=== PATIENT | male | born 1955 | race Two or more races ===

== ENCOUNTER 2022-09-25 00:36 | Inpatient (IN) | payer OTHER ==
[~2022-09-25] VITALS: Ht 167.6 cm; Wt 61.2 kg
[2022-09-25] VITALS (11 sets, daily range): BP systolic 142–158; BP diastolic 71–89
--- NOTE | 2022-09-25 00:40 | NUR ---
[id number], from [facility], c/o chest pain radiating to upper back since 9am 01/06 ps. Vitals checked. Attached to the monitor.
--- NOTE | 2022-09-25 00:55 | NUR ---
Dr. Whitman at bedside.
--- NOTE | 2022-09-25 01:00 | NUR ---
EKG done at bedside by EMT
--- NOTE | 2022-09-25 01:01 | NUR ---
INVERFORM MACHINE OPERATOR AT PT'S BEDSIDE
--- NOTE | 2022-09-25 01:05 | NUR ---
Covid Swab done and sent to lab.
--- NOTE | 2022-09-25 01:05 | NUR ---
Blood drawn for CBC and blood culture and sent to lab.
[2022-09-25 01:39] LABS: BASOPHILS % (AUTO) 0.3 % (0.0-2.0); EOSINOPHILS % (AUTO) 5.8 % (0.0-6.0); LYMPHOCYTES # (AUTO) 0.7 K/uL (0.8-4.8); LYMPHOCYTES % (AUTO) 16.9 % (20.0-44.0); MEAN CORPUSCULAR HGB CONC 34 g/dl (31.0-36.0); MEAN CORPUSCULAR VOLUME 80 fL (80-96); MONOCYTES # (AUTO) 0.4 K/uL (0.1-1.30); MONOCYTES % (AUTO) 8.4 % (2.0-12.0); NEUTROPHILS % (AUTO) 68.6 % (43.0-81.0); PLATELET COUNT (AUTO) 125 K/uL (150-450); RED BLOOD CELL COUNT(AUTO) 2.36 MIL/uL (4.5-6.0); WHITE BLOOD COUNT (AUTO) 4.3 K/uL (4.3-11.0)
[2022-09-25 01:43] LABS: HEMATOCRIT 19 % (39-51); HEMOGLOBIN 6.4 g/dL (13.5-17.5)
[2022-09-25 01:48] LABS: CALCIUM, SERUM 8.2 mg/dL (8.5-10.1); CARBON DIOXIDE 23 mmol/L (21-32); CHLORIDE 104 mmol/L (98-107); CREATININE 2.2 mg/dL (0.6-1.3); GLUCOSE 150 mg/dL (74-106); POTASSIUM 3.6 mmol/L (3.5-5.1); SODIUM SERUM 135 mmol/L (136-145); UREA NITROGEN, BLOOD 46 mg/dL (7-18)
[2022-09-25 02:00] LABS: ALANINE AMINOTRANSFERASE 21 U/L (12-78); ALBUMIN 2.7 g/dL (3.4-5.0); ALKALINE PHOSPHATASE 295 U/L (46-116); ASPARTATE AMINOTRANSFERASE 20 U/L (15-37); BILIRUBIN,DIRECT 0.2 mg/dL (0.0-0.2); BILIRUBIN,TOTAL 0.4 mg/dL (0.2-1.0); TOTAL PROTEIN, SERUM 7.3 g/dL (6.4-8.2)
[2022-09-25] MEDS ORDERED: FUROSEMIDE 40 MG/4 ML VIAL IV ONE (02:00)
--- NOTE | 2022-09-25 02:16 | NUR ---
EPIC PANEL PAGED
[2022-09-25] MEDS ORDERED: NITROGLYCERIN 0.4 MG/TAB BOTTLE SL PRN (02:30)
--- NOTE | 2022-09-25 02:43 | NUR ---
Pt signed the consent form for Blood transfusion.
--- NOTE | 2022-09-25 03:19 | NUR ---
STORY EDITOR AT PT'S BEDSIDE
[2022-09-25 03:40] LABS: LYMPHOCYTES % (MANUAL) 15 % (16-48); NEUTROPHILS % (MANUAL) 71 (42-76)
[2022-09-25 03:41] LABS: BASOPHILS % (MANUAL) 0 % (0.0-2.0); EOSINOPHILS % (MANUAL) 5 % (0-4); MONOCYTES % (MANUAL) 9 % (0-11.0)
[2022-09-25] MEDS ORDERED: MORPHINE SULFATE INJ 2 MG/ML DISP.SYRIN IV PRN (05:00)
--- NOTE | 2022-09-25 05:23 | NUR ---
BLOOD VERIFIED BY: SNEHA DEL ROSARIO. BLOOD TRANSFUSION STARTED AT 05:23. VITAL SIGNS: TEMP: 97.5, PULSE: 71, RESP: 17, BP: 149/81.
[2022-09-25 05:32] LABS: BASOPHILS % (AUTO) 0.3 % (0.0-2.0); HEMATOCRIT 21 % (39-51); LYMPHOCYTES # (AUTO) 0.8 K/uL (0.8-4.8); LYMPHOCYTES % (AUTO) 19.2 % (20.0-44.0); MEAN CORPUSCULAR HGB CONC 33 g/dl (31.0-36.0); MEAN CORPUSCULAR VOLUME 81 fL (80-96); MONOCYTES # (AUTO) 0.3 K/uL (0.1-1.30); MONOCYTES % (AUTO) 8.4 % (2.0-12.0); NEUTROPHILS # (AUTO) 2.6 K/uL (1.8-8.9); NEUTROPHILS % (AUTO) 65.1 % (43.0-81.0); PLATELET COUNT (AUTO) 137 K/uL (150-450); RED BLOOD CELL COUNT(AUTO) 2.59 MIL/uL (4.5-6.0)
--- NOTE | 2022-09-25 05:46 | NUR ---
URINE OUTPUT: 760ML.
[2022-09-25 05:51] LABS: HEMOGLOBIN 6.9 g/dL (13.5-17.5)
--- NOTE | 2022-09-25 05:51 | NUR ---
hgb: 6.9 , aware
[2022-09-25 06:41] LABS: ALBUMIN 2.8 g/dL (3.4-5.0); BILIRUBIN,TOTAL 0.4 mg/dL (0.2-1.0); CALCIUM, SERUM 8.6 mg/dL (8.5-10.1); CREATININE 2.2 mg/dL (0.6-1.3); MAGNESIUM 1.9 mg/dL (1.8-2.4); POTASSIUM 3.5 mmol/L (3.5-5.1); TOTAL PROTEIN, SERUM 7.7 g/dL (6.4-8.2)
--- NOTE | 2022-09-25 07:07 | NUR ---
URINE OUTPUT: 700ML.
[2022-09-25 07:25] LABS: THYROID STIMULATING HORMONE 2.765 uIU/mL (0.358-3.74)
--- NOTE | 2022-09-25 07:30 | NUR ---
Report given to katalina DEL ROSARIO pt transfer to [facility] 118
[2022-09-25] MEDS ORDERED: IBUP-1953 PO (07:43)
[2022-09-25] MEDS ORDERED: MAGN400O6 PO (07:43)
[2022-09-25] MEDS ORDERED: PANT40TA2 PO (07:43)
[2022-09-25] MEDS ORDERED: DAPA10TA PO (07:43)
[2022-09-25] MEDS ORDERED: TAMS-12 PO (07:43)
[2022-09-25] MEDS ORDERED: LEVO750T46 PO (07:43)
[2022-09-25] MEDS ORDERED: MULT-447 PO (07:43)
[2022-09-25] MEDS ORDERED: DIPH25CA51 PO (07:43)
[2022-09-25] MEDS ORDERED: BISA10SU11 RC (07:43)
[2022-09-25] MEDS ORDERED: BUME1TAB34 PO (07:43)
[2022-09-25] MEDS ORDERED: SIME80TA15 PO (07:43)
[2022-09-25] MEDS ORDERED: INSU100V7 SQ (07:43)
[2022-09-25] MEDS ORDERED: CHOL100043 PO (07:43)
[2022-09-25] MEDS ORDERED: ASCO-352 PO (07:43)
[2022-09-25] MEDS ORDERED: ZINC50TA65 PO (07:43)
[2022-09-25] MEDS ORDERED: INSU100V11 SQ (07:43)
[2022-09-25] MEDS ORDERED: SODI1TAB66 PO (07:43)
[2022-09-25] MEDS ORDERED: TRAM50TA2 PO (07:43)
[2022-09-25] MEDS ORDERED: ACET-868 PO (07:43)
[2022-09-25] MEDS ORDERED: AMLO-213 PO (07:43)
[2022-09-25] MEDS ORDERED: FERR325T28 PO (07:43)
[2022-09-25] MEDS ORDERED: SUCR1ORA15 PO (07:43)
[2022-09-25] MEDS ORDERED: BENZ200C53 PO (07:43)
[2022-09-25] MEDS ORDERED: POLY17PO4 PO (07:43)
--- NOTE | 2022-09-25 07:45 | NUR ---
RN NOTE RECEIVED PATIENT FROM ER, ADMITTED FOR CHEST PAIN, CAME FROM SNF,ABLE TO AMBULATE WITH WALKER AND ASSISTANCE. FROM PT WORDS: HE IS S/P RIGHT FOOT ULCER DEBRIDEMENT, DRESSING CLEAN AND INTACT, OTHERWISE NO SKIN BREAKDOWN NOTED. IV ACCESS RIGHT HAND 18G, INTACT, FLUSHES WELL. PT IS TAJIK SPEAKING, A/O X 4, O2 SATURATION 98%ON RA. SAFETY MEASURES MAINTAINED: BED LOCKED AND IN LOWEST POSITION, SIDE RAILS UP X3, CALL LIGHT WITHIN REACH.
--- NOTE | 2022-09-25 07:46 | NUR ---
Pt transfered to [facility] 118. Pt in bed safe and comfortable. paper work given to charge
[2022-09-25] MEDS: ASPIRIN 81 MG TAB.CHEW PO SCH (09:17)
[2022-09-25] MEDS: FUROSEMIDE 40 MG/4 ML VIAL IV SCH ×2 (09:18→17:22)
[2022-09-25] MEDS: PANTOPRAZOLE 40 MG VIAL IV SCH ×2 (09:18→21:06)
[2022-09-25] MEDS ORDERED: BISACODYL SUPP (10 MG) 10 MG/SUPP.RECT SUPP.RECT RC PRN (14:00)
[2022-09-25] MEDS ORDERED: SIMETHICONE 80 MG TAB.CHEW PO PRN (14:00)
[2022-09-25] MEDS ORDERED: MAGNESIUM HYDROXIDE 30 ML UDC PO PRN (14:00)
[2022-09-25] MEDS ORDERED: DEXTROSE 50%-WATER 50 ML DISP.SYRIN IV PRN (14:00)
[2022-09-25] MEDS ORDERED: BENZONATATE 100 MG CAPSULE PO PRN (14:30)
[2022-09-25] MEDS ORDERED: SUCRALFATE 1 G/10 ML UDC PO SCH (17:00)
[2022-09-25] MEDS: FERROUS SULFATE (325 MG) 325 MG/TAB TABLET PO SCH (17:25)
[2022-09-25] MEDS: BLOOD SUGAR DIAGNOSTIC 1 EACH STRIP VI SCH (17:25)
[2022-09-25] MEDS: INSULIN REGULAR, HUMAN 100 UNIT/ML 3 ML VIAL SQ PRN (17:57)
--- NOTE | 2022-09-25 18:57 | NUR ---
RN CLOSING NOTE PATIENT ASLEEP, BUT EASY TO AROUSE, A/O X 4, O2 SATURATION 98% ON RA, NO C/O, NO DISTRESS NOTED, SKIN IS WARM AND DRY. EXTERNAL MERCHANDISING SPECIALIST SHOWS SR. IV ACCESS ON RIGHT HAND. ONE BAG OF RBC TRANSFUSED, ALL DUE MEDS GIVEN, NEEDS ATTENDED. PT USING URINAL IN BED AND HAD ONE BM AMBULATED WITH ASSISTANCE IN RESTROOM. SAFETY MEASURES MAINTAINED: BED LOCKED AND IN LOWEST POSITION, SIDE RAILS UP X3, CALL LIGHT WITHIN REACH. WILL ENDORSE TO ONCOMING NURSE FOR NATALIE.
--- NOTE | 2022-09-25 19:30 | NUR ---
RN NOTE RN NOTE RECEIVED PT IN BED, AAOX4. ON ROOM AIR, NO SOB, NO ACUTE RESP DISTRESS NOTED. PT DENIES PAIN/DISCOMFORT AT THIS TIME. PT ATTACHED TO EXTERNAL MANAGER PEDIATRIC. DENIES PAIN/DISCOMFORT AT THIS TIME. RAC #18G CLEAN, DRY, AND INTACT ON SL. HOB ELEVATED. CALL LIGHT WITHIN EASY REACH. SAFETY PRECAUTION IMPLEMENTED: BED LOCKED AND IN LOWEST POSITION, BED ALARM ON. WILL CONT POC.
[2022-09-25 19:59] LABS: HEMOGLOBIN 10.4 g/dL (13.5-17.5)
[2022-09-25] MEDS: TAMSULOSIN 0.4 MG CAP.SR.24H PO SCH (21:06)
[2022-09-25] MEDS: ACETAMINOPHEN 325 MG TABLET PO PRN (22:43)
[2022-09-26] VITALS: BP 155/80
[2022-09-26] MEDS: BLOOD SUGAR DIAGNOSTIC 1 EACH STRIP VI SCH ×5 (00:35→21:24)
[2022-09-26] MEDS: *INSULIN REGULAR(HUMULIN R)HUM 100 UNIT/ML VIAL SQ PRN ×2 (00:36→22:36)
[2022-09-26 04:00] VITALS: BP 152/76
--- NOTE | 2022-09-26 07:15 | NUR ---
RN NOTE PT REMAINS IN STABLE CONDITION, NO SIGNIFICANT CHANGES NOTED. ALL DUE MEDICSTIONS GIVEN ORDERED. ALL NEEDS ATTENDED. KEPT PT CLEAN, DRY AND COMFORTABLE AT ALL TIMES. WILL ENDORSE TO AM SHIFT.
--- NOTE | 2022-09-26 07:20 | NUR ---
RN NOTE RECEIVED PATIENT IN BED RESTING ALERT ORIENTED X4 VERBALLY RESPONSIVE,ROOM AIR O2:95% AMBULATORY WITH ASSIST IV SITE IS ON RIGHT HAND INTACT AND PATENT,CONTIENT BOWEL/BLADDER,SAFETY MEASURE IMPLEMENT BED IN LOW POSITION AND LOCKED,CALL LIGHT WITHIN REACH CONTINUE TO MONITOR.
[2022-09-26 08:00] VITALS: BP 157/90
[2022-09-26 08:06] LABS: BASOPHILS % (AUTO) 0.2 % (0.0-2.0); EOSINOPHILS % (AUTO) 6.3 % (0.0-6.0); HEMATOCRIT 29 % (39-51); HEMOGLOBIN 9.7 g/dL (13.5-17.5); LYMPHOCYTES # (AUTO) 0.8 K/uL (0.8-4.8); LYMPHOCYTES % (AUTO) 14.1 % (20.0-44.0); MEAN CORPUSCULAR HGB CONC 33 g/dl (31.0-36.0); MEAN CORPUSCULAR VOLUME 82 fL (80-96); MONOCYTES # (AUTO) 0.4 K/uL (0.1-1.30); MONOCYTES % (AUTO) 6.8 % (2.0-12.0); NEUTROPHILS % (AUTO) 72.6 % (43.0-81.0); PLATELET COUNT (AUTO) 138 K/uL (150-450); RED BLOOD CELL COUNT(AUTO) 3.57 MIL/uL (4.5-6.0); WHITE BLOOD COUNT (AUTO) 5.5 K/uL (4.3-11.0)
[2022-09-26] MEDS: POLYETHYLENE GLYCOL 3350 17 GM POWD.PACK PO SCH (08:25)
[2022-09-26] MEDS: ASCORBIC ACID 500 MG TABLET PO SCH (08:25)
[2022-09-26] MEDS: MULTIVIT W/MINERALS 1 TAB TABLET PO SCH (08:25)
[2022-09-26] MEDS: PANTOPRAZOLE 40 MG VIAL IV SCH ×2 (08:25→21:24)
[2022-09-26] MEDS: FERROUS SULFATE (325 MG) 325 MG/TAB TABLET PO SCH ×3 (08:26→16:35)
[2022-09-26] MEDS: FUROSEMIDE 40 MG/4 ML VIAL IV SCH ×3 (08:26→16:35)
[2022-09-26] MEDS: AMLODIPINE BESYLATE 10 MG TABLET PO SCH (08:26)
[2022-09-26] MEDS: ASPIRIN 81 MG TAB.CHEW PO SCH (08:26)
[2022-09-26] MEDS: ZINC SULFATE 220 MG CAPSULE PO SCH (08:26)
[2022-09-26] MEDS: SUCRALFATE 1 G TABLET PO SCH ×2 (08:29→16:35)
[2022-09-26 09:06] LABS: ALBUMIN 2.8 g/dL (3.4-5.0); BILIRUBIN,TOTAL 0.6 mg/dL (0.2-1.0); CALCIUM, SERUM 8.3 mg/dL (8.5-10.1); CREATININE 2.2 mg/dL (0.6-1.3); MAGNESIUM 1.7 mg/dL (1.8-2.4); PHOSPHORUS 5.7 mg/dL (2.5-4.9); POTASSIUM 3.5 mmol/L (3.5-5.1); TOTAL PROTEIN, SERUM 7.7 g/dL (6.4-8.2)
[2022-09-26] MEDS: ACETAMINOPHEN 325 MG TABLET PO PRN (10:18)
[2022-09-26 12:00] VITALS: BP 147/75
[2022-09-26] MEDS: INSULIN REGULAR, HUMAN 100 UNIT/ML 3 ML VIAL SQ PRN ×2 (12:26→16:58)
[2022-09-26] MEDS: EMPAGLIFLOZIN 25 MG TABLET PO SCH (15:33)
[2022-09-26] MEDS: CEFTRIAXONE 1 G in IV D5W 50 ML IV SCH (15:57)
[2022-09-26 16:00] VITALS: BP 140/70
--- NOTE | 2022-09-26 18:48 | NUR ---
RN CLOSING NOTE PATIENT A/O X 4, O2 SATURATION 98% ON RA, NO C/O, NO DISTRESS NOTED, SKIN IS WARM AND DRY. EXTERNAL PERCH MENDER SHOWS SR. IV ACCESS ON RIGHT HAND, INTACT AND PATENT. ALL DUE MEDS GIVEN, NEEDS ATTENDED. PT USING URINAL IN BED AND HAD ONE BM AMBULATED WITH ASSISTANCE IN RESTROOM. SAFETY MEASURES MAINTAINED: BED LOCKED AND IN LOWEST POSITION, SIDE RAILS UP X3, CALL LIGHT WITHIN REACH. WILL ENDORSE TO ONCOMING NURSE FOR NATALIE. CHANGED THE LASIX IVP ORDER. NO S/S OF HYPO/HYPERGLYCEMIA NOTED.
--- NOTE | 2022-09-26 19:30 | NUR ---
RN OPENING NOTE RECEIVED PT AWAKE IN BED, PATIENT A/O X 4, UZBE[place] SPEAKING, O2 SATURATION 98% ON RA, NO S/SX OF DISTRESS NOTED, SKIN IS WARM AND DRY. IV ACCESS ON RIGHT HAND, INTACT AND PATENT. PT USING URINAL IN BED, SAFETY MEASURES MAINTAINED: BED LOCKED AND IN LOWEST POSITION, SIDE RAILS UP X3, CALL LIGHT WITHIN REACH. WILL CONTINUE TO MONITOR THROUGHOUT THE SHIFT.
[2022-09-26 20:00] VITALS: BP 131/73
[2022-09-26] MEDS: TAMSULOSIN 0.4 MG CAP.SR.24H PO SCH (21:23)
[2022-09-26] MEDS: TRAMADOL HCL 50 MG TABLET PO PRN (21:24)
[2022-09-27 04:00] VITALS: BP 133/71
--- NOTE | 2022-09-27 06:43 | NUR ---
RN CLOSING NOTE PT REMAINS ON BED SLEEPING BUT AROUSABLE TO TOUCH AND VOICE, PATIENT A/O X 4, HUNGARIAN SPEAKING, O2 SATURATION 98% ON RA, NO S/SX OF DISTRESS NOTED, SKIN IS WARM AND DRY. SR ON TELEMONITOR AT 78, IV ACCESS ON RIGHT HAND, INTACT AND PATENT. PT USING URINAL EMPTIED 1400ML, ALL DUE MEDS GIVEN, KEPT DRY AND CLEAN, SAFETY MEASURES MAINTAINED: BED LOCKED AND IN LOWEST POSITION, SIDE RAILS UP X3, CALL LIGHT WITHIN REACH. WILL ENDORSE TO AM SHIFT NURSE FOR CONTINUITY OF CARE.
[2022-09-27 07:25] LABS: CALCIUM, SERUM 8.2 mg/dL (8.5-10.1); CREATININE 2.2 mg/dL (0.6-1.3); POTASSIUM 3.6 mmol/L (3.5-5.1)
[2022-09-27] MEDS: BLOOD SUGAR DIAGNOSTIC 1 EACH STRIP VI SCH ×4 (07:50→22:00)
[2022-09-27] MEDS: PANTOPRAZOLE 40 MG VIAL IV SCH ×2 (09:15→22:52)
[2022-09-27] MEDS: ASPIRIN 81 MG TAB.CHEW PO SCH (09:17)
[2022-09-27] MEDS: FUROSEMIDE 40 MG/4 ML VIAL IV SCH ×2 (09:17→16:16)
[2022-09-27] MEDS: ZINC SULFATE 220 MG CAPSULE PO SCH (09:17)
[2022-09-27] MEDS: FERROUS SULFATE (325 MG) 325 MG/TAB TABLET PO SCH ×3 (09:17→16:14)
[2022-09-27] MEDS: MULTIVIT W/MINERALS 1 TAB TABLET PO SCH (09:17)
[2022-09-27] MEDS: SUCRALFATE 1 G TABLET PO SCH ×2 (09:17→16:14)
[2022-09-27] MEDS: ASCORBIC ACID 500 MG TABLET PO SCH (09:17)
[2022-09-27] MEDS: AMLODIPINE BESYLATE 10 MG TABLET PO SCH (09:17)
[2022-09-27] MEDS: POLYETHYLENE GLYCOL 3350 17 GM POWD.PACK PO SCH (09:18)
[2022-09-27] MEDS: EMPAGLIFLOZIN 25 MG TABLET PO SCH (09:38)
[2022-09-27 10:31] LABS: BASOPHILS % (AUTO) 0.1 % (0.0-2.0); EOSINOPHILS % (AUTO) 5.8 % (0.0-6.0); HEMATOCRIT 30 % (39-51); LYMPHOCYTES % (AUTO) 19.7 % (20.0-44.0); MEAN CORPUSCULAR HGB CONC 34 g/dl (31.0-36.0); MEAN CORPUSCULAR VOLUME 81 fL (80-96); MONOCYTES # (AUTO) 0.4 K/uL (0.1-1.30); MONOCYTES % (AUTO) 8.2 % (2.0-12.0); NEUTROPHILS # (AUTO) 3.3 K/uL (1.8-8.9); NEUTROPHILS % (AUTO) 66.2 % (43.0-81.0); PLATELET COUNT (AUTO) 138 K/uL (150-450); RED BLOOD CELL COUNT(AUTO) 3.67 MIL/uL (4.5-6.0); WHITE BLOOD COUNT (AUTO) 4.9 K/uL (4.3-11.0)
[2022-09-27] MEDS: INSULIN REGULAR, HUMAN 100 UNIT/ML 3 ML VIAL SQ PRN (12:38)
[2022-09-27] MEDS: CEFTRIAXONE 1 G in IV D5W 50 ML IV SCH (15:52)
[2022-09-27] MEDS: *INSULIN REGULAR(HUMULIN R)HUM 100 UNIT/ML VIAL SQ PRN (17:28)
[2022-09-27 18:00] VITALS: BP 134/78
[2022-09-27 20:00] VITALS: BP 141/74
[2022-09-27] MEDS: TAMSULOSIN 0.4 MG CAP.SR.24H PO SCH (22:51)
[2022-09-28] VITALS: BP 132/71
[2022-09-28 04:00] VITALS: BP 135/74
--- NOTE | 2022-09-28 07:20 | NUR ---
RN OPENING NOTE RECEIVED PT AWAKE IN BED, PATIENT A/O X 4, COOK ISLANDER SPEAKING, O2 SATURATION 98% ON RA, NO S/SX OF DISTRESS NOTED, SKIN IS WARM AND DRY. IV ACCESS ON RIGHT HAND, INTACT AND PATENT. PT USING URINAL IN BED, SAFETY MEASURES MAINTAINED: BED LOCKED AND IN LOWEST POSITION, SIDE RAILS UP X3, CALL LIGHT WITHIN REACH. WILL CONTINUE TO MONITOR THROUGHOUT THE SHIFT.
[2022-09-28] MEDS: BLOOD SUGAR DIAGNOSTIC 1 EACH STRIP VI SCH ×5 (07:45→22:02)
[2022-09-28 08:00] VITALS: BP 156/77
--- NOTE | 2022-09-28 08:32 | NUR ---
0640 CLIENT ON BED ASLEEP,HOWEVER,IN NO OBVIOUS DISTRESS DISTRESS.EASILY AROUSED. RESP EASY AND UNLABORED. SALINE LOCK INTACT AND PATENT TO RIGHT HAND.DENIES PAIN AND DISCOMFORT. BLOOD SUGAR 83 MG/DL AFFECT PLEASANT AND COOPERATIVE. READY TO BE DISCHARGED. WILL CONTINUE PLAN OF CARE. IN NO CARDIAC NOR RESP DISTRESS. WILL CONTINUE TO MONITOR FOR SAFETY.MADE COMFORTABLE.
[2022-09-28] MEDS: MULTIVIT W/MINERALS 1 TAB TABLET PO SCH (09:31)
[2022-09-28] MEDS: SUCRALFATE 1 G TABLET PO SCH ×2 (09:31→16:57)
[2022-09-28] MEDS: FUROSEMIDE 40 MG/4 ML VIAL IV SCH ×2 (09:31→16:57)
[2022-09-28] MEDS: POLYETHYLENE GLYCOL 3350 17 GM POWD.PACK PO SCH (09:31)
[2022-09-28] MEDS: PANTOPRAZOLE 40 MG VIAL IV SCH ×2 (09:32→22:02)
[2022-09-28] MEDS: ZINC SULFATE 220 MG CAPSULE PO SCH (09:32)
[2022-09-28] MEDS: AMLODIPINE BESYLATE 10 MG TABLET PO SCH (09:32)
[2022-09-28] MEDS: FERROUS SULFATE (325 MG) 325 MG/TAB TABLET PO SCH ×3 (09:32→16:57)
[2022-09-28] MEDS: ASCORBIC ACID 500 MG TABLET PO SCH (09:32)
[2022-09-28] MEDS: ASPIRIN 81 MG TAB.CHEW PO SCH (09:33)
[2022-09-28] MEDS: EMPAGLIFLOZIN 25 MG TABLET PO SCH (09:47)
[2022-09-28 10:48] LABS: BASOPHILS % (AUTO) 0.2 % (0.0-2.0); EOSINOPHILS % (AUTO) 4.7 % (0.0-6.0); HEMATOCRIT 30 % (39-51); HEMOGLOBIN 10.2 g/dL (13.5-17.5); LYMPHOCYTES # (AUTO) 0.9 K/uL (0.8-4.8); LYMPHOCYTES % (AUTO) 14.5 % (20.0-44.0); MEAN CORPUSCULAR HGB CONC 34 g/dl (31.0-36.0); MEAN CORPUSCULAR VOLUME 81 fL (80-96); MONOCYTES # (AUTO) 0.4 K/uL (0.1-1.30); MONOCYTES % (AUTO) 6.8 % (2.0-12.0); NEUTROPHILS # (AUTO) 4.6 K/uL (1.8-8.9); NEUTROPHILS % (AUTO) 73.8 % (43.0-81.0); PLATELET COUNT (AUTO) 139 K/uL (150-450); RED BLOOD CELL COUNT(AUTO) 3.68 MIL/uL (4.5-6.0); WHITE BLOOD COUNT (AUTO) 6.2 K/uL (4.3-11.0)
[2022-09-28 11:04] LABS: CALCIUM, SERUM 8.4 mg/dL (8.5-10.1); CREATININE 2.1 mg/dL (0.6-1.3); POTASSIUM 3.9 mmol/L (3.5-5.1)
[2022-09-28 11:10] LABS: ALBUMIN 2.9 g/dL (3.4-5.0); BILIRUBIN,TOTAL 0.5 mg/dL (0.2-1.0); MAGNESIUM 1.9 mg/dL (1.8-2.4); PHOSPHORUS 5.1 mg/dL (2.5-4.9)
[2022-09-28] MEDS: INSULIN REGULAR, HUMAN 100 UNIT/ML 3 ML VIAL SQ PRN (12:08)
[2022-09-28] MEDS ORDERED: ANESTHESIA TRAY IN PYXIS 1 EA TRAY MC ONE (14:39)
[2022-09-28 16:00] VITALS: BP 140/75
[2022-09-28] MEDS: CEFTRIAXONE 1 G in IV D5W 50 ML IV SCH (16:57)
--- NOTE | 2022-09-28 17:48 | NUR ---
RN NOTES: SPOKE TO IRMA MESA NP PT IS REFUSING TO TAKE INSULIN AT BEDTIME HIS BLOOD SUGAR EARLY TODAY WAS 75 WITH ORDER TO DC INSULIN AT BEDTIME
--- NOTE | 2022-09-28 19:50 | NUR ---
RN OPENING NOTE RECEIVED PT AWAKE IN BED, PATIENT A/O X 4, BHUTANESE SPEAKING, ABLE TO VERBALIZE NEEDS. ON ROOM AIR, WITH O2 SATURATION AT 99%. NO S/SX OF DISTRESS NOTED, SKIN IS WARM AND DRY. IV ACCESS TO RIGHT HAND, INTACT AND PATENT. PT USING URINAL IN BED, SAFETY MEASURES MAINTAINED: BED LOCKED AND IN LOWEST POSITION, SIDE RAILS UP X3, CALL LIGHT WITHIN REACH. WILL CONTINUE TO MONITOR PT THROUGHOUT THE SHIFT.
--- NOTE | 2022-09-28 19:50 | NUR ---
RN CLOSING NOTE PATIENT ASLEEP, BUT EASY TO AROUSE, A/O X 4, O2 SATURATION 98% ON RA, NO C/O, NO DISTRESS NOTED, SKIN IS WARM AND DRY. EXTERNAL HYDROELECTRIC POWERPLANT SUPERVISOR SHOWS SR. IV ACCESS ON RIGHT FOREARM., ALL DUE MEDS GIVEN, NEEDS ATTENDED. PT USING URINAL IN BED AND HAD ONE BM AMBULATED WITH ASSISTANCE IN RESTROOM. SAFETY MEASURES MAINTAINED: BED LOCKED AND IN LOWEST POSITION, SIDE RAILS UP X3, CALL LIGHT WITHIN REACH. ENDORSED TO ONCOMING NURSE FOR NATALIE.
[2022-09-28] MEDS: TAMSULOSIN 0.4 MG CAP.SR.24H PO SCH (22:02)
[2022-09-29] VITALS: BP 132/51
--- NOTE | 2022-09-29 06:50 | NUR ---
RN CLOSING NOTE PATIENT ASLEEP, BUT EASY TO AROUSE, A/O X 4, O2 SATURATION 98% ON RA, NO C/O, NO DISTRESS NOTED. IV ACCESS ON RIGHT FOREARM. PT HAS BEEN NPO SINCE MIDNIGHT D/T EGD SCHEDULED TODAY. SAFETY MEASURES MAINTAINED: BED LOCKED AND IN LOWEST POSITION, SIDE RAILS UP X3, CALL LIGHT WITHIN REACH. WILL ENDORSE TO ONCOMING NURSE FOR NATALIE.
[2022-09-29 06:51] LABS: BASOPHILS % (AUTO) 0.4 % (0.0-2.0); EOSINOPHILS % (AUTO) 4.1 % (0.0-6.0); HEMATOCRIT 30 % (39-51); HEMOGLOBIN 10.1 g/dL (13.5-17.5); LYMPHOCYTES % (AUTO) 15.7 % (20.0-44.0); MEAN CORPUSCULAR HGB CONC 34 g/dl (31.0-36.0); MEAN CORPUSCULAR VOLUME 81 fL (80-96); MONOCYTES # (AUTO) 0.4 K/uL (0.1-1.30); MONOCYTES % (AUTO) 6.4 % (2.0-12.0); NEUTROPHILS # (AUTO) 4.7 K/uL (1.8-8.9); NEUTROPHILS % (AUTO) 73.4 % (43.0-81.0); PLATELET COUNT (AUTO) 127 K/uL (150-450); RED BLOOD CELL COUNT(AUTO) 3.67 MIL/uL (4.5-6.0); WHITE BLOOD COUNT (AUTO) 6.4 K/uL (4.3-11.0)
[2022-09-29 07:15] LABS: ALBUMIN 2.9 g/dL (3.4-5.0); BILIRUBIN,TOTAL 0.5 mg/dL (0.2-1.0); CALCIUM, SERUM 8.5 mg/dL (8.5-10.1); CREATININE 2.3 mg/dL (0.6-1.3); MAGNESIUM 1.9 mg/dL (1.8-2.4); PHOSPHORUS 5.1 mg/dL (2.5-4.9); POTASSIUM 3.7 mmol/L (3.5-5.1); TOTAL PROTEIN, SERUM 7.9 g/dL (6.4-8.2)
[2022-09-29] MEDS: BLOOD SUGAR DIAGNOSTIC 1 EACH STRIP VI SCH ×3 (07:21→17:10)
--- NOTE | 2022-09-29 07:42 | NUR ---
OPENING NOTE RECEIVED PT AWAKE IN BED, PATIENT A/O X 4, DOMINICAN SPEAKING, ABLE TO VERBALIZE NEEDS. ON ROOM AIR, WITH O2 SATURATION AT 99%. NO S/SX OF DISTRESS NOTED, SKIN IS WARM AND DRY. IV ACCESS TO RIGHT HAND, INTACT AND PATENT. PT USING URINAL IN BED, NPO D/T EGD PROCEDURE TODAY, SAFETY MEASURES MAINTAINED: BED LOCKED AND IN LOWEST POSITION, SIDE RAILS UP X3, CALL LIGHT WITHIN REACH. WILL CONTINUE TO MONITOR PT THROUGHOUT THE SHIFT.
[2022-09-29 08:00] VITALS: BP 152/76
[2022-09-29] MEDS ORDERED: LIDOCAINE 1% INJ 50 ML MDV IJ ONE (09:09)
[2022-09-29] MEDS: ASPIRIN 81 MG TAB.CHEW PO SCH (09:57)
[2022-09-29] MEDS: SUCRALFATE 1 G TABLET PO SCH ×2 (09:57→16:15)
[2022-09-29] MEDS: FERROUS SULFATE (325 MG) 325 MG/TAB TABLET PO SCH ×3 (09:57→16:15)
[2022-09-29] MEDS: ASCORBIC ACID 500 MG TABLET PO SCH (09:58)
[2022-09-29] MEDS: AMLODIPINE BESYLATE 10 MG TABLET PO SCH (09:59)
[2022-09-29] MEDS: ZINC SULFATE 220 MG CAPSULE PO SCH (10:01)
[2022-09-29] MEDS: EMPAGLIFLOZIN 25 MG TABLET PO SCH (10:01)
[2022-09-29] MEDS: MULTIVIT W/MINERALS 1 TAB TABLET PO SCH (10:02)
[2022-09-29] MEDS: FUROSEMIDE 40 MG/4 ML VIAL IV SCH ×2 (10:03→16:14)
[2022-09-29] MEDS: PANTOPRAZOLE 40 MG VIAL IV SCH ×2 (10:03→21:38)
[2022-09-29] MEDS: POLYETHYLENE GLYCOL 3350 17 GM POWD.PACK PO SCH (10:05)
[2022-09-29] MEDS: CEFTRIAXONE 1 G in IV D5W 50 ML IV SCH (15:42)
[2022-09-29 16:00] VITALS: BP 128/72
[2022-09-29] MEDS: INSULIN REGULAR, HUMAN 100 UNIT/ML 3 ML VIAL SQ PRN (17:12)
--- NOTE | 2022-09-29 18:47 | NUR ---
CLOSING NOTE PATIENT ASLEEP, BUT EASY TO AROUSE, A/O X 4, O2 SATURATION 98% ON RA, NO C/O, NO DISTRESS NOTED. IV ACCESS ON RIGHT FOREARM. SAFETY MEASURES MAINTAINED: BED LOCKED AND IN LOWEST POSITION, SIDE RAILS UP X3, CALL LIGHT WITHIN REACH.
[2022-09-29] MEDS: TAMSULOSIN 0.4 MG CAP.SR.24H PO SCH (21:38)
[2022-09-29] MEDS: TRAMADOL HCL 50 MG TABLET PO PRN (21:38)
[2022-09-30] VITALS: BP 130/72
[2022-09-30] MEDS: BLOOD SUGAR DIAGNOSTIC 1 EACH STRIP VI SCH ×4 (07:25→21:51)
--- NOTE | 2022-09-30 07:30 | NUR ---
OPENING NOTE RECEIVED PT AWAKE IN BED, PATIENT A/O X 4, LATVIAN SPEAKING, ABLE TO VERBALIZE NEEDS. ON ROOM AIR, WITH O2 SATURATION AT 99%. NO S/SX OF DISTRESS NOTED, SKIN IS WARM AND DRY. IV ACCESS TO RIGHT HAND, INTACT AND PATENT. PT USING URINAL IN BED, NPO D/T EGD PROCEDURE TODAY, SAFETY MEASURES MAINTAINED: BED LOCKED AND IN LOWEST POSITION, SIDE RAILS UP X3, CALL LIGHT WITHIN REACH. WILL CONTINUE TO MONITOR PT THROUGHOUT THE SHIFT.
[2022-09-30 07:36] LABS: BASOPHILS % (AUTO) 0.3 % (0.0-2.0); EOSINOPHILS % (AUTO) 4.6 % (0.0-6.0); HEMATOCRIT 29 % (39-51); HEMOGLOBIN 9.8 g/dL (13.5-17.5); LYMPHOCYTES # (AUTO) 1.1 K/uL (0.8-4.8); LYMPHOCYTES % (AUTO) 19.5 % (20.0-44.0); MEAN CORPUSCULAR HGB CONC 34 g/dl (31.0-36.0); MEAN CORPUSCULAR VOLUME 81 fL (80-96); MONOCYTES # (AUTO) 0.3 K/uL (0.1-1.30); NEUTROPHILS # (AUTO) 4.2 K/uL (1.8-8.9); NEUTROPHILS % (AUTO) 70.6 % (43.0-81.0); PLATELET COUNT (AUTO) 137 K/uL (150-450); RED BLOOD CELL COUNT(AUTO) 3.58 MIL/uL (4.5-6.0); WHITE BLOOD COUNT (AUTO) 5.9 K/uL (4.3-11.0)
[2022-09-30 07:54] LABS: CALCIUM, SERUM 8.7 mg/dL (8.5-10.1); CREATININE 2.4 mg/dL (0.6-1.3); POTASSIUM 4.2 mmol/L (3.5-5.1)
[2022-09-30 08:00] VITALS: BP 147/67
[2022-09-30] MEDS: ASCORBIC ACID 500 MG TABLET PO SCH (08:19)
[2022-09-30] MEDS: ASPIRIN 81 MG TAB.CHEW PO SCH (08:19)
[2022-09-30] MEDS: MULTIVIT W/MINERALS 1 TAB TABLET PO SCH (08:19)
[2022-09-30] MEDS: SUCRALFATE 1 G TABLET PO SCH ×2 (08:19→16:26)
[2022-09-30] MEDS: ZINC SULFATE 220 MG CAPSULE PO SCH (08:19)
[2022-09-30] MEDS: FERROUS SULFATE (325 MG) 325 MG/TAB TABLET PO SCH ×3 (08:19→16:26)
[2022-09-30] MEDS: AMLODIPINE BESYLATE 10 MG TABLET PO SCH (08:19)
[2022-09-30] MEDS: PANTOPRAZOLE 40 MG VIAL IV SCH (08:20)
[2022-09-30] MEDS: POLYETHYLENE GLYCOL 3350 17 GM POWD.PACK PO SCH (08:20)
[2022-09-30] MEDS: FUROSEMIDE 40 MG/4 ML VIAL IV SCH (08:20)
[2022-09-30] MEDS: EMPAGLIFLOZIN 25 MG TABLET PO SCH (08:21)
[2022-09-30] MEDS: PANTOPRAZOLE 40 MG TABLET.DR PO SCH (08:43)
[2022-09-30] MEDS: INSULIN REGULAR, HUMAN 100 UNIT/ML 3 ML VIAL SQ PRN ×3 (11:34→21:57)
[2022-09-30] MEDS: CEFTRIAXONE 1 G in IV D5W 50 ML IV SCH (15:00)
[2022-09-30 16:00] VITALS: BP 140/67
--- NOTE | 2022-09-30 19:25 | NUR ---
MS RN OPENING NOTE RECEIVED PT IN BED, AAO X 4, [place] SPEAKING, ABLE TO MAKE NEEDS KNOWN. ON ROOM AIR, WITH O2 SATURATION AT 99%. NO S/SX OF DISTRESS NOTED, SKIN IS WARM AND DRY. IV ACCESS ON RIGHT HAND S/L, INTACT AND PATENT. SAFETY MEASURES IN PLACE: BED LOCKED AND IN LOWEST POSITION, SIDE RAILS UP X3, CALL LIGHT WITHIN REACH.
[2022-09-30 20:00] VITALS: BP 141/79
[2022-09-30] MEDS: TAMSULOSIN 0.4 MG CAP.SR.24H PO SCH (21:30)
--- NOTE | 2022-09-30 22:00 | NUR ---
MS RN NOTE PATIENT BLOOD SUGAR IS 164. PATIENT REFUSED 3 UNITS OF REGULAR INSULIN.
[2022-10-01 04:00] VITALS: BP 139/71
--- NOTE | 2022-10-01 07:07 | NUR ---
MS RN CLOSING NOTE PATIENT IN BED, AAO X 4, CAMBODIAN SPEAKING, ABLE TO MAKE NEEDS KNOWN. ON ROOM AIR, WITH O2 SATURATION AT 99%. NO S/SX OF DISTRESS NOTED, SKIN IS WARM AND DRY. IV ACCESS ON RIGHT HAND S/L, INTACT AND PATENT. ALL DUE MEDS WERE GIVEN AND NEEDS ATTENDED. VSS. SAFETY MEASURES MAINTAINED: BED LOCKED AND IN LOWEST POSITION, SIDE RAILS UP X3, CALL LIGHT WITHIN REACH. WILL ENDORSE TO ONCOMING NURSE FOR NATALIE.
[2022-10-01 07:24] LABS: CALCIUM, SERUM 8.6 mg/dL (8.5-10.1); CREATININE 2.3 mg/dL (0.6-1.3); POTASSIUM 4.3 mmol/L (3.5-5.1)
--- NOTE | 2022-10-01 07:33 | NUR ---
RN OPENING NOTE RECEIVED PT AWAKE IN BED, PATIENT A/O X 4, DUTCH SPEAKING, O2 SATURATION ON RA, NO S/SX OF DISTRESS NOTED, IV ACCESS ON RIGHT HAND, INTACT AND PATENT. ALL SAFETY MEASURES MAINTAINED: BED LOCKED AND IN LOWEST POSITION, SIDE RAILS UP X3, CALL LIGHT WITHIN REACH.BED ALARM ON.
[2022-10-01] MEDS: BLOOD SUGAR DIAGNOSTIC 1 EACH STRIP VI SCH ×2 (07:51→12:28)
[2022-10-01] MEDS: ASPIRIN 81 MG TAB.CHEW PO SCH (08:21)
[2022-10-01] MEDS: SUCRALFATE 1 G TABLET PO SCH (08:21)
[2022-10-01 08:22] VITALS: BP 127/69
[2022-10-01] MEDS: PANTOPRAZOLE 40 MG TABLET.DR PO SCH (08:22)
[2022-10-01] MEDS: POLYETHYLENE GLYCOL 3350 17 GM POWD.PACK PO SCH (08:22)
[2022-10-01] MEDS: MULTIVIT W/MINERALS 1 TAB TABLET PO SCH (08:22)
[2022-10-01] MEDS: FERROUS SULFATE (325 MG) 325 MG/TAB TABLET PO SCH ×2 (08:22→12:41)
[2022-10-01] MEDS: AMLODIPINE BESYLATE 10 MG TABLET PO SCH (08:22)
[2022-10-01] MEDS: ZINC SULFATE 220 MG CAPSULE PO SCH (08:23)
[2022-10-01] MEDS: ASCORBIC ACID 500 MG TABLET PO SCH (08:23)
[2022-10-01] MEDS: EMPAGLIFLOZIN 25 MG TABLET PO SCH (08:25)
[2022-10-01] MEDS ORDERED: PANT40TA49 PO (12:16)
[2022-10-01] MEDS ORDERED: SUCR1TAB31 PO (12:16)
[2022-10-01] MEDS ORDERED: EMPA25TA PO (12:16)
[2022-10-01] MEDS ORDERED: ASPI-1169 PO (12:16)
[2022-10-01] MEDS: INSULIN REGULAR, HUMAN 100 UNIT/ML 3 ML VIAL SQ PRN (12:39)
--- NOTE | 2022-10-01 15:39 | NUR ---
HAND COKE DRAWER NOTE PT LEFT IN STABLE CONDITION. PT ALERT AND ORIENTED X4. WENT OVER DISCHARGE INSTRUCTIONS, PAPERWORK AND MEDICATION LIST. PT VERBABLIZED UNDERSTANDING. REMOVED IV. ESCORTED OUT BY WHEELCHAIR WITH VICE PRESIDENT OF INSTRUCTION. PICKED UP BY FAM[facility]
== END 2022-10-01 15:26 | disposition home or self-care (01) | DRG 241 ==
LOC: ER 00:39 → TELE1 04:36 → MEDSG1 09-26 13:46
PROVIDERS: ADMIT Nurse Practitioner Acute Care; ATTEND Nurse Practitioner Acute Care
PROC: 30233N1 Transfusion of Nonautologous Red Blood Cells into Peripheral Vein, Percutaneous Approach (ICD-10-PCS; principal; 2022-09-25)
PROC: 0DJ08ZZ Inspection of Upper Intestinal Tract, Via Natural or Artificial Opening Endoscopic (ICD-10-PCS; 2022-09-29)
DX: K25.9 Gastric ulcer, unspecified as acute or chronic, without hemorrhage or perforation (principal); N17.0 Acute kidney failure with tubular necrosis; I50.33 Acute on chronic diastolic (congestive) heart failure; D61.818 Other pancytopenia; E44.0 Moderate protein-calorie malnutrition; I13.0 Hypertensive heart and chronic kidney disease with heart failure and stage 1 through stage 4 chronic kidney disease, or unspecified chronic kidney disease; J15.9 Unspecified bacterial pneumonia; D63.1 Anemia in chronic kidney disease; E88.09 Other disorders of plasma-protein metabolism, not elsewhere classified; D63.8 Anemia in other chronic diseases classified elsewhere; J90 Pleural effusion, not elsewhere classified; M86.671 Other chronic osteomyelitis, right ankle and foot; K76.6 Portal hypertension; E11.22 Type 2 diabetes mellitus with diabetic chronic kidney disease; E11.69 Type 2 diabetes mellitus with other specified complication; E78.5 Hyperlipidemia, unspecified; K21.9 Gastro-esophageal reflux disease without esophagitis; K74.60 Unspecified cirrhosis of liver; Z20.822 Contact with and (suspected) exposure to COVID-19; N18.9 Chronic kidney disease, unspecified; N40.0 Benign prostatic hyperplasia without lower urinary tract symptoms; K75.81 Nonalcoholic steatohepatitis (NASH); K31.89 Other diseases of stomach and duodenum; Z88.8 Allergy status to other drugs, medicaments and biological substances; D50.9 Iron deficiency anemia, unspecified
CPT/HCPCS: 36415; 71045-TC; 76770-TC; 80048-TC; 80053-TC; 80076-TC; 82962-TC; 83735-TC; 83880; 84100-TC; 84443-TC; 84484-TC; 85025-TC; 85027-TC; 85730-TC; 86850-TC; 87081-TC; 93307-TC; C9113; C9803; G0378; J0696; J1815; J1940; J3490; J7050; J7060; P9016